=== PATIENT | male | born 1990 | race Caucasian/White ===

== ENCOUNTER 2018-12-03 10:25 | Day surgery (SDC) | payer BC ==
[~2018-12-03] VITALS: Ht 154.9 cm; Wt 64.2 kg
[2018-12-03] VITALS (15 sets, daily range): BP systolic 85–119; BP diastolic 48–76; PULSE 62–96; RESP 12–23; Ht 154.9 cm; Wt 64.2 kg
[~2018-12-03 10:25] MED LIST: CEFAZOLIN 2 GM/50 ML (PMX) 50 ML IVPB ONE
[2018-12-03] MEDS ORDERED: ACET1TAB40 PO (10:55)
[2018-12-03] MEDS ORDERED: LACTATED RINGER'S 1,000 ML IV SCH (11:18)
--- NOTE | 2018-12-03 12:40 | PREAC ---
Date/Time of Note Date/Time of Note DATE: 12/03/18 TIME: 12:40 Anesthesia Eval and Record Evaluation Time Pre-Procedure Interview DATE: 12/03/18 TIME: 12:40 Age 28 Sex male NPO: 8 hrs Preoperative diagnosis Left kidney stone Planned procedure Left ESWL Past Medical History Past Medical History: Includes Recreational drugs: Marijuana Surgery & Anesthesia Issues No known issue Meds Anticoagulation: No Beta Shailesh within 24 hr: No Reason Beta Shailesh not given: Pt. not on B-Shailesh Reported Medications Acetaminophen with Codeine (Acetaminophen-Cod #3 Tablet) 1 Each Tablet, 1 TAB PO Q6H PRN for PAIN LEVEL 4-6, #7 TAB 12/03/18 Current Medications Lactated Ringer's 1,000 ml @ 25 mls/hr Q24H IV Last administered on 12/03/18at 11:25; Admin Dose 25 MLS/HR; Start 12/03/18 at 11:18 Meds reviewed: Yes Allergies Coded Allergies: No Known Allergy (Unverified , 12/03/18) Allergies Reviewed: Yes Labs/Studies Labs Reviewed: Reviewed by anesthesiologist test: N/A Pre-procedure Exam Last vitals Vital Signs Date Temp Pulse Resp B/P (MAP) Pulse Ox O2 O2 Flow FiO2 Time Delivery Rate 12/03/18 98.6 63 18 113/76 97 Room Air 11:28 (88) Airway: Adequate mouth opening Mallampati: Mallampati I Teeth: Normal Lung: Normal Heart: Normal ASA Physical Status ASA physical status: 2 Emergency: None Planned Anesthetic General/MAC: ETT Planned Pain Management Parenteral pain med Pre-operative Attestations Prior to commencing anesthesia and surgery, the patient was re-evaluated, there was verification of: *The patient's identity *The results of appropriate recent lab work and preoperative vital signs *The above evaluation not changing prior to induction *Anesthetic plan, risk benefits, alternative and complications discussed with patient/family; questions answered; patient/family understands, accepts and wishes to proceed. JANY NARVAEZ MD December 03, 2018 12:40
[2018-12-03] MEDS ORDERED: FENTAnyl 50 MCG/ML VIAL ONE (17:41)
[2018-12-03] MEDS ORDERED: ROCURONIUM 50 MG INJ ONE (17:41)
[2018-12-03] MEDS ORDERED: PROPOFOL 20 ML ONE (17:41)
[2018-12-03] MEDS ORDERED: MIDAZOLAM 1 MG/ML 2 ML INJ ONE (17:41)
[2018-12-03] MEDS ORDERED: CEFAZOLIN 1 GM INJ ONE (17:41)
[2018-12-03] MEDS ORDERED: EPHEDrine 25 MG/5 ML SYG ONE (18:03)
[2018-12-03] MEDS ORDERED: DEXAMETHASONE 4 MG/ML 5 ML INJ ONE (18:04)
[2018-12-03] MEDS ORDERED: KETOROLAC 30 MG INJ ONE (18:04)
[2018-12-03] MEDS ORDERED: ONDANSETRON 4 MG INJ ONE (18:04)
[2018-12-03] MEDS ORDERED: METOCLOPRAMIDE 10 MG INJ ONE (18:04)
[2018-12-03] MEDS ORDERED: FUROSEMIDE 20 MG INJ ONE (18:42)
[2018-12-03] MEDS ORDERED: SUGAMMADEX SODIUM 200 MG/2 ML VIAL IV ONE (18:48)
[2018-12-03] MEDS ORDERED: MEPERIDINE 100 MG INJ ONE (18:55)
--- NOTE | 2018-12-03 18:59 | HPN ---
Date/Time of Note Date/Time of Note DATE: 12/03/18 TIME: 18:59 Interval H&P Admission Note Pt. seen H&P reviewed: No system changes PATRIC TO MD December 03, 2018 18:59
--- NOTE | 2018-12-03 19:01 | PAC ---
Date/Time of Note Date/Time of Note DATE: 12/03/18 TIME: 19:01 Post-Anesthesia Notes Post-Anesthesia Note Last documented vital signs Vital Signs Date Temp Pulse Resp B/P (MAP) Pulse Ox O2 O2 Flow FiO2 Time Delivery Rate 12/03/18 98.2 63 18 113/76 97 Room Air 19:10 (88) Activity: WNL Respiratory function: WNL Cardiovascular function: WNL Mental status: Baseline Pain reasonably controlled: Yes Hydration appropriate: Yes Nausea/Vomiting absent: Yes GÉNESIS CASTELLON MD December 03, 2018 19:01
--- NOTE | 2018-12-03 19:05 | OPR ---
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 He was positioned in the supine position on the lithotripsy machine table. He was given general anesthesia and 2 g of Ancef at the start of the procedure. Timeout was done and the patient was identified by his name, birthdate, the procedure and the side of the procedure. The stone located in the lower pole of the left kidney and measuring 8 mm was then visualized on both screens. The shockwave lithotripsy was then started. The energy level started with 3 KV and went up to 8 gradually. The patient started having PVCs therefore we put a new cardiac leads and gated the shockwaves. The position of the stone was checked regularly every 200-300 shockwaves. The stone appeared to be breaking well and the total shockwaves delivered were 2400 shocks. At the end of the procedure the patient was given 10 mg of Lasix IV. The patient tolerated the procedure well and was transferred to the recovery room in a stable and satisfactory condition. PATRIC TO MD December 03, 2018 19:05
[2018-12-03] MEDS ORDERED: EPHEDrine 25 MG/5 ML SYG IV PRN (19:30)
[2018-12-03] MEDS ORDERED: DIPHENHYDRAMINE 50 MG INJ IV PRN (19:30)
[2018-12-03] MEDS ORDERED: HYDROCODONE/APAP (5/325) TAB PO PRN (19:30)
[2018-12-03] MEDS ORDERED: MEPERIDINE 25 MG INJ IV PRN (19:30)
[2018-12-03] MEDS ORDERED: HYDROmorphONE 1 MG/5 ML IV SYRINGE IV PRN ×3 (19:30)
[2018-12-03] MEDS ORDERED: FENTAnyl 50 MCG/ML VIAL IV PRN ×3 (19:30)
[2018-12-03] MEDS ORDERED: ONDANSETRON 4 MG INJ IV PRN ×2 (19:30)
[2018-12-03] MEDS ORDERED: METOCLOPRAMIDE 10 MG INJ IV PRN (19:30)
[2018-12-03] MEDS ORDERED: OXYCODONE/ACETAMINOPHEN (5/325) TAB PO PRN ×2 (19:30)
[2018-12-03] MEDS ORDERED: KETOROLAC 30 MG INJ IV PRN (19:30)
== END 2018-12-03 20:50 | disposition home or self-care (01) ==
LOC: SDS 10:25
PROVIDERS: ATTEND Urology
DX: N20.0 Calculus of kidney (principal)
CPT/HCPCS: 50590; 74430; J0690; J1100; J1885; J1940; J2175; J2250; J2405; J2765; J3010; Z7512; Z7610

== ENCOUNTER 2019-01-19 14:11 | Emergency (ER) | payer BC ==
[~2019-01-19] VITALS: Ht 152.4 cm; Wt 78.0 kg
[~2019-01-19 14:11] MED LIST changes: +ACET1TAB40 PO; -CEFAZOLIN 2 GM/50 ML (PMX) 50 ML IVPB ONE
[2019-01-19 14:14] VITALS: Ht 152.4 cm; Wt 78.0 kg
[2019-01-19] MEDS ORDERED: morphine 4 MG/ML VIAL IV STA (14:20)
[2019-01-19] MEDS ORDERED: SOD CHLORIDE 0.9% 1,000 ML IV STA (14:20)
[2019-01-19] MEDS ORDERED: ONDANSETRON 4 MG INJ IV STA (14:20)
[2019-01-19] MEDS ORDERED: KETOROLAC 15 MG INJ IV STA (14:20)
[2019-01-19] MEDS ORDERED: ONDA4TAB8 PO (16:26)
[2019-01-19] MEDS ORDERED: IBUP800T48 PO (16:26)
[2019-01-19] MEDS ORDERED: HYDR-4011 PO (16:26)
[2019-01-19] MEDS ORDERED: TAMS-14 PO (16:26)
[2019-01-19 16:33] VITALS: BP 102/64; PULSE 64; RESP 16
[2019-01-19] MEDS ORDERED: HYDROCODONE/APAP (5/325) TAB PO ONE (17:00)
--- NOTE | 2019-01-19 19:41 | ERD ---
ER Documentation Chief Complaint Chief Complaint AP, ONSET AT 1200 HPI 28-year-old male with history of kidney stones presents to the ED complaining of sudden onset left flank and abdominal pain since 12 PM today. Patient states pain has been waxing and waning. Patient states pain is sharp and radiates towards his left inguinal and left testicular region. He does have some pain with urination but no hematuria. He states he feels nauseous but has not had any vomiting episodes. Patient states his symptoms today are very similar to his previous kidney stone pains. He states his most recent kidney stone was approximately 2 months ago that required lithotripsy. Denies any other symptoms. No fevers. ROS All systems reviewed and are negative except as per history of present illness. Medications Home Meds Active Scripts Ondansetron Hcl* (Zofran*) 4 Mg Tablet, 4 MG PO Q6H for NAUSEA AND/OR VOMITING, #30 TAB Prov:DISHIGRIKIAN,ZEPYUR N PA-C 01/19/19 Tamsulosin Hcl* (Flomax*) 0.4 Mg Cap.er.24h, 0.4 MG PO BID, #30 CAP Prov:DISHIGRIKIAN,ZEPYUR N PA-C 01/19/19 Hydrocodone/Acetaminophen (Storden 5-325 Tablet) 1 Each Tablet, 1 TAB PO Q6H PRN for PAIN, #7 TAB Prov:DISHIGRIKIAN,ZEPYUR N PA-C 01/19/19 Ibuprofen* (Motrin*) 800 Mg Tab, 800 MG PO Q6H PRN for PAIN AND OR ELEVATED TEMP, #30 TAB Prov:DISHIGRIKIAN,ZEPYUR N PA-C 01/19/19 Reported Medications Acetaminophen with Codeine (Acetaminophen-Cod #3 Tablet) 1 Each Tablet, 1 TAB PO Q6H PRN for PAIN LEVEL 4-6, #7 TAB 12/03/18 Allergies Allergies: Coded Allergies: No Known Allergy (Unverified , 12/03/18) PMhx/Soc History of Surgery: Yes (lithotripsy) Anesthesia Reaction: No Hx Neurological Disorder: No Hx Respiratory Disorders: No Hx Cardiac Disorders: No Hx Psychiatric Problems: No Hx Miscellaneous Medical Probl: Yes (kidney stones) Hx Alcohol Use: No Hx Substance Use: No Hx Tobacco Use: No Smoking Status: Never smoker FmHx Family History: No diabetes Physical Exam Vitals Vital Signs Date Temp Pulse Resp B/P (MAP) Pulse Ox O2 O2 Flow FiO2 Time Delivery Rate 01/19/19 98.1 64 16 102/64 98 Room Air 16:33 (77) 01/19/19 98.1 66 18 140/67 99 14:14 (91) Physical Exam Const: + Moderate distress secondary to pain Head: Atraumatic Eyes: Normal Conjunctiva ENT: Normal External Ears, Nose and Mouth. Neck: Full range of motion. No meningismus. Resp: Clear to auscultation bilaterally Cardio: Regular rate and rhythm, no murmurs Abd: Soft, non tender, non distended. Normal bowel sounds Skin: No petechiae or rashes Back: + Left CVA tenderness palpation. Ext: No cyanosis, or edema Neur: Awake and alert Psych: Normal Mood and Affect Result Diagram: 01/19/19 1434 01/19/19 1434 Results 24 hrs Laboratory Tests Test 01/19/19 14:34 White Blood Count 16.9 10^3/ul Red Blood Count 5.54 10^6/ul Hemoglobin 15.8 g/dl Hematocrit 46.8 % Mean Corpuscular Volume 84.5 fl Mean Corpuscular Hemoglobin 28.5 pg Mean Corpuscular Hemoglobin Concent 33.8 g/dl Red Cell Distribution Width 13.0 % Platelet Count 246 10^3/UL Mean Platelet Volume 9.7 fl Immature Granulocytes % 0.600 % Neutrophils % 84.5 % Lymphocytes % 10.3 % Monocytes % 4.1 % Eosinophils % 0.1 % Basophils % 0.4 % Nucleated Red Blood Cells % 0.0 /100WBC Immature Granulocytes # 0.100 10^3/ul Neutrophils # 14.3 10^3/ul Lymphocytes # 1.7 10^3/ul Monocytes # 0.7 10^3/ul Eosinophils # 0.0 10^3/ul Basophils # 0.1 10^3/ul Nucleated Red Blood Cells # 0.0 10^3/ul Urine Color YELLOW Urine Clarity CLEAR Urine pH 5.0 Urine Specific [place] 1.021 Urine Ketones TRACE mg/dL Urine Nitrite NEGATIVE mg/dL Urine Bilirubin NEGATIVE mg/dL Urine Urobilinogen NEGATIVE mg/dL Urine Leukocyte Esterase NEGATIVE Margarette/ul Urine Microscopic RBC 4 /HPF Urine Microscopic WBC 1 /HPF Urine Hemoglobin 2+ mg/dL Urine Glucose NEGATIVE mg/dL Urine Total Protein NEGATIVE mg/dl Sodium Level 143 mmol/L Potassium Level 4.3 mmol/L Chloride Level 107 mmol/L Carbon Dioxide Level 25 mmol/L Anion Gap 11 Blood Urea Nitrogen 17 mg/dl Creatinine 1.11 mg/dl Est Glomerular Filtrat Rate mL/min > 60 mL/min Glucose Level 102 mg/dl Calcium Level 10.0 mg/dl Total Bilirubin 2.1 mg/dl Direct Bilirubin 0.00 mg/dl Indirect Bilirubin 2.1 mg/dl Aspartate Amino Transf (AST/SGOT) 23 IU/L Alanine Aminotransferase (ALT/SGPT) 39 IU/L Alkaline Phosphatase 81 IU/L Total Protein 8.3 g/dl Albumin 5.0 g/dl Globulin 3.30 g/dl Albumin/Globulin Ratio 1.51 Lipase 103 U/L Current Medications Medications Dose Sig/Annette Start Time Status Last (Trade) Ordered Route PRN Stop Time Admin Dose Reason Admin Sodium 1,000 ml @ Q1H STAT 01/19/19 DC 01/19/19 Chloride 1,000 mls/hr IV 14:20 01/19/19 14:38 15:19 Morphine 4 mg ONCE STAT 01/19/19 DC 01/19/19 Sulfate IV 14:20 01/19/19 14:37 (morphine) 14:21 Ondansetron 4 mg ONCE STAT 01/19/19 DC 01/19/19 HCl (Zofran IV 14:20 01/19/19 14:37 Inj) 14:21 Ketorolac 15 mg ONCE STAT 01/19/19 DC 01/19/19 Tromethamine IV 14:20 01/19/19 14:37 (Toradol) 14:21 1 tab ONCE ONCE 01/19/19 DC 01/19/19 Acetaminophen PO 17:00 01/19/19 16:46 / 17:01 Hydrocodone Bitart (Storden (5/325)) Procedures/MDM LABS & DIAGNOSTIC IMAGING: CBC: WBC 16.9, likely reactive CMP: no e/o severe acidosis, alkalosis, renal failure, diabetic ketoacidosis, liver disease The patient's lipase is normal and indicative of no pancreatitis. Urine: 2 + hgb w/o pyuria PROCEDURE: XR Abdomen. CLINICAL INDICATION: Abdominal pain IMPRESSION: Two 4 mm calculi project over the left mid abdomen in the expected location of the left proximal ureter. Consider CT for further evaluation. PROCEDURE: Retroperitoneal US. CLINICAL INDICATION: Flank pain COMPARISON: 12/09/2018 IMPRESSION: Mild hydronephrosis in the upper pole of the left kidney. ED COURSE: The patient was given IV fluids, Zofran, Toradol, morphine The medication was well tolerated and the patient had market improvement in symptoms. The patient remained stable throughout ED course. MEDICAL DECISION MAKIN-year-old with history of kidney stones presents with left renal colic. KUB confirms 4 mm stones in the left proximal ureter x 2. CBC revealed leukocytosis of over 16 however this is likely reactive. Patient felt much better after IV fluids, Zofran, Toradol and morphine. BUN and creatinine were normal. He has no fever here and vital signs are normal. I have low suspicion for sepsis, infected or obstructive kidney stone. Patient will be discharged home with exp ectant management and pain medications. Recommended PCP follow-up in 1 week if symptoms do not improve. Strict return precautions were discussed. PRESCRIPTIONS: Flomax, ibuprofen, Storden SPECIALIST FOLLOW UP RECOMMENDED: None Patient has been advised to follow up with primary care in 1-2 days. Departure Diagnosis: Primary Impression: Renal colic Additional Impression: Nephrolithiasis Condition: Stable Patient Instructions: Kidney Stones: Your Evaluation Referrals: [facility] YOU HAVE RECEIVED A MEDICAL SCREENING EXAM AND THE RESULTS INDICATE THAT YOU DO NOT HAVE A CONDITION THAT REQUIRES URGENT TREATMENT IN THE EMERGENCY DEPARTMENT. FURTHER EVALUATION AND TREATMENT OF YOUR CONDITION CAN WAIT UNTIL YOU ARE SEEN IN YOUR DOCTORS OFFICE WITHIN THE NEXT 1-2 DAYS. IT IS YOUR RESPONSIBILITY TO MAKE AN APPOINTMENT FOR FOLOW-UP CARE. IF YOU HAVE A PRIMARY DOCTOR --you should call your primary doctor and schedule an appointment IF YOU DO NOT HAVE A PRIMARY DOCTOR YOU CAN CALL OUR PHYSICIAN REFERRAL HOTLINE AT IF YOU CAN NOT AFFORD TO SEE A PHYSICIAN YOU CAN CHOSE FROM THE FOLLOWING [facility] [address] [facility] [address] [facility]. [facility] [address] [facility] [address] [facility] [address] [facility] [address] [facility]. [facility] YOU HAVE RECEIVED A MEDICAL SCREENING EXAM AND THE RESULTS INDICATE THAT YOU DO NOT HAVE A CONDITION THAT REQUIRES URGENT TREATMENT IN THE EMERGENCY DEPARTMENT. FURTHER EVALUATION AND TREATMENT OF YOUR CONDITION CAN WAIT UNTIL YOU ARE SEEN IN YOUR DOCTORS OFFICE WITHIN THE NEXT 1-2 DAYS. IT IS YOUR RESPONSIBILITY TO MAKE AN APPOINTMENT FOR FOLOW-UP CARE. IF YOU HAVE A PRIMARY DOCTOR --you should call your primary doctor and schedule and appointment IF YOU DO NOT HAVE A PRIMARY DOCTOR YOU CAN CALL OUR PHYSICIAN REFERRAL HOTLINE AT . IF YOU CAN NOT AFFORD TO SEE A PHYSICIAN YOU CAN CHOSE FROM THE FOLLOWING [facility] INSTITUTIONS: [facility] [address] [place] [address] [facility] [address] [place] [address] [facility] [address] [place] [address] Additional Instructions: Call your primary care doctor TOMORROW for an appointment during the next 2-4 days and bring all the information and medications prescribed. If the symptoms get worse and your provider is unavailable, return to the Emergency Department immediately. Stone should pass in about a week. If you continue to have worsening pain after 1 week, return here see her primary care provider. RACHEL CISNEROS PA-C Jan 19, 2019 19:41
== END 2019-01-19 16:53 | disposition home or self-care (01) ==
LOC: FTE 14:11
DX: N20.0 Calculus of kidney (principal); N23 Unspecified renal colic
CPT/HCPCS: 36415; 74018; 76775; 80053; 81001; 83690; 85025; 87086; 96374; 96375; 99285; J1885; J2270; J2405; J7030; Z7610